=== PATIENT | male | born 1975 | race Caucasian/White ===

== ENCOUNTER 2021-08-21 23:51 | Emergency (ER) | payer MEDICAID, OTHER ==
[~2021-08-21] VITALS: Ht 182.8 cm; Wt 78.3 kg
[2021-08-22] MEDS ORDERED: KETOROLAC 30 MG/ML VIAL IVP STA (00:22)
[2021-08-22] MEDS ORDERED: LACTATED RINGERS 1,000 ML IV ONE (00:30)
--- NOTE | 2021-08-22 00:37 | ED GU-Male ---
General Chief Complaint: Back Problems Stated Complaint: RT SIDE KIDNEY PX Nursing Triage Note: PT ARRIVAL TO ER WITH COMPLAINT OF RIGHT FLANK PAIN X12 HOURS. PT STATES THAT ITS A RIPPING HIS KIDNEY OUT TYPE OF PAIN. PT STATES THAT WHILE SHOWERING EARLIER HE PEED WHAT LOOKED LIKE MUDDY WATER. PT DENIES PAINFUL URINATION OR DIFFICULTY URINATING BUT STATES THAT IT LOOKED NASTY. PT SAYS PAIN GOES FROM RIGHT KIDNEY AREA AROUND TO GROIN AREA. Source: patient History of Present Illness Date Seen by Provider: Aug 22, 2021 Time Seen by Provider: 00:20 Initial Comments PT ARRIVES VIA POV FROM HOME STATES Allergies and Home Medications Allergies Coded Allergies: No Known Allergies (Verified Allergy, Unknown, 03/25/05) Past Zzbhkeu-[id number]-Jkwcvv Hx Patient Social History Tobacco Use?: Yes Tobacco type used: Cigarettes Smoking Status: Current Everyday Smoker Use of E-Cig and/or Vaping dev: No Substance use?: Yes Substance type: Marijuana Substance frequency: Couple times a week Alcohol Use?: Yes Alcohol type: Beer, Hard Liquor Alcohol Frequency: Rarely Pt feels they are or have been: No Immunizations Up To Date Influenza Vaccine Up-to-Date: No; Not Current Physical Exam Vital Signs Vital Signs - First Documented 08/22/21 00:04 Temp 36.8 Pulse 96 Resp 20 B/P (MAP) 105/80 (88) Pulse Ox 97 O2 Delivery Room Air Capillary Refill : Less Than 3 Seconds Height, Weight, BMI Height: '" Weight: lbs. oz. kg; 23.00 BMI Method: Progress/Results/Core Measures Suspected Sepsis SIRS Temperature: Pulse: 96 Respiratory Rate: 20 Laboratory Tests 08/22/21 00:47: White Blood Count 12.9H Blood Pressure 105 /80 Mean: 88 Laboratory Tests 08/22/21 00:47: Creatinine 0.94, Platelet Count 206, Total Bilirubin 0.4 Results/Orders Lab Results Laboratory Tests Test 08/22/21 00:04 08/22/21 00:47 Range/Units Urine Color YELLOW Urine Clarity CLOUDY Urine pH 5.5 5-9 Urine Specific [place] >=1.030 1.016-1.022 Urine Protein 2+ H NEGATIVE Urine Glucose (UA) NEGATIVE NEGATIVE Urine Ketones NEGATIVE NEGATIVE Urine Nitrite NEGATIVE NEGATIVE Urine Bilirubin 1+ H NEGATIVE Urine Urobilinogen 1.0 < = 1.0 MG/DL Urine Leukocyte Esterase NEGATIVE NEGATIVE Urine RBC (Auto) 3+ H NEGATIVE Urine RBC 5-10 H /HPF Urine WBC NONE /HPF Urine Squamous Epithelial Cells RARE /HPF Urine Crystals PRESENT H /LPF Urine Calcium Oxalate Crystals FEW H /LPF Urine Bacteria MODERATE H /HPF Urine Casts NONE /LPF Urine Mucus SMALL H /LPF Urine Culture Indicated YES White Blood Count 12.9 H 4.3-11.0 10^3/uL Red Blood Count 4.83 4.30-5.52 10^6/uL Hemoglobin 14.8 13.3-17.7 g/dL Hematocrit 45 40-54 % Mean Corpuscular Volume 92 80-99 fL Mean Corpuscular Hemoglobin 31 25-34 pg Mean Corpuscular Hemoglobin Concent 33 32-36 g/dL Red Cell Distribution Width 12.8 10.0-14.5 % Platelet Count 206 130-400 10^3/uL Mean Platelet Volume 10.3 9.0-12.2 fL Immature Granulocyte % (Auto) 0 % Neutrophils (%) (Auto) 70 42-75 % Lymphocytes (%) (Auto) 22 12-44 % Monocytes (%) (Auto) 8 0-12 % Eosinophils (%) (Auto) 1 0-10 % Basophils (%) (Auto) 0 0-10 % Neutrophils # (Auto) 8.9 H 1.8-7.8 10^3/uL Lymphocytes # (Auto) 2.8 1.0-4.0 10^3/uL Monocytes # (Auto) 1.0 0.0-1.0 10^3/uL Eosinophils # (Auto) 0.1 0.0-0.3 10^3/uL Basophils # (Auto) 0.0 0.0-0.1 10^3/uL Immature Granulocyte # (Auto) 0.0 0.0-0.1 10^3/uL Sodium Level 141 135-145 MMOL/L Potassium Level 4.0 3.6-5.0 MMOL/L Chloride Level 106 98-107 MMOL/L Carbon Dioxide Level 22 21-32 MMOL/L Anion Gap 13 5-14 MMOL/L Blood Urea Nitrogen 17 7-18 MG/DL Creatinine 0.94 0.60-1.30 MG/DL Estimat Glomerular Filtration Rate 101 BUN/Creatinine Ratio 18 Glucose Level 99 70-105 MG/DL Calcium Level 9.5 8.5-10.1 MG/DL Corrected Calcium 9.3 8.5-10.1 MG/DL Total Bilirubin 0.4 0.1-1.0 MG/DL Aspartate Amino Transf (AST/SGOT) 18 5-34 U/L Alanine Aminotransferase (ALT/SGPT) 15 0-55 U/L Alkaline Phosphatase 70 40-136 U/L Total Protein 7.0 6.4-8.2 GM/DL Albumin 4.3 3.2-4.5 GM/DL My Orders Orders - FRANCINE GONG DO Ed Iv/Invasive Line Start (08/22/21 00:22) Ct Abd/Pelvis Wo(Kidney Stone) (08/22/21 00:22) Abdomen/Kub 1view (08/22/21:) Cbc With Automated Diff (08/22/21:22) Comprehensive Metabolic Panel (08/22/21:22) Ua Culture If Indicated (08/22/21:22) Ed Iv/Invasive Line Start (08/22/21:22) Ketorolac Injection (Toradol Injection) (08/22/21:22) Ed Iv/Invasive Line Start (08/22/21 00:22) Lactated Ringers (Lr 1000 Ml Iv Solution (08/22/21 00:30) Urine Culture (08/22/21 00:04) Alcohol (08/22/21 01:30) Drug Screen Stat (Urine) (08/22/21 01:30) Medications Given in ED Current Medications Medications Dose Ordered Sig/Veronica Route Start Time Stop Time Status Last Admin Dose Admin Lactated Ringer's 1,000 ml @ 0 mls/hr Q0M ONCE IV 08/22/21 00:30 08/22/21 00:31 DC 08/22/21 00:49 999 MLS/HR Vital Signs/I&O 08/22/21 00:04 Temp 36.8 Pulse 96 Resp 20 B/P (MAP) 105/80 (88) Pulse Ox 97 O2 Delivery Room Air Capillary Refill : Less Than 3 Seconds Blood Pressure Mean: 88 Departure Impression Primary Impression: Right flank pain Additional Impressions: Urinary tract infection with hematuria RIGHT INTRARENAL STONE Disposition: HOME, SELF-CARE Condition: Improved Departure-Patient Inst. Decision time for Depature: 01:30 Referrals: NO,LOCAL PHYSICIAN (PCP) Primary Care Physician REBECCA RODRÍGUEZ MD Patient Instructions: Flank Pain, Blood in Urine (Hematuria), Adult ED, Urinary Tract Infection, Adult ED Add. Discharge Instructions: INCREASE YOUR FLUID INTAKE FOLLOW UP WITH DR. RODRÍGUEZ, UROLOGIST, THIS WEEK FOR FURTHER CARE, RETURN TO ER IF WORSE All discharge instructions reviewed with patient and/or family. Voiced unde rstanding. Scripts Tramadol HCl (Ultram) 50 Mg Tablet 50 MG PO Q4H for Pain, #10 TAB Prov: FRANCINE GONG DO 08/22/21 Ketorolac Tromethamine (Ketorolac Tromethamine) 10 Mg Tablet 10 MG PO Q6H for Pain, #15 TAB Prov: FRANCINE GONG DO 08/22/21 Ondansetron (Ondansetron Odt) 4 Mg Tab.rapdis 4 MG PO Q4H for Nausea/Vomiting, #10 TAB Prov: FRANCINE GONG DO 08/22/21 Tamsulosin HCl (Flomax) 0.4 Mg Cap 0.4 MG PO DAILY, #10 CAP Prov: FRANCINE GONG DO 08/22/21 Ciprofloxacin HCl (Ciprofloxacin HCl) 500 Mg Tablet 500 MG PO BID, #14 TAB Prov: FRANCINE GONG DO 08/22/21 FRANCINE GONG DO Aug 22, 2021 00:37
[2021-08-22 00:56] LABS: BASOPHILS % (AUTO) 0 % (0-10); EOSINOPHILS # (AUTO) 0.1 10^3/uL (0.0-0.3); EOSINOPHILS % (AUTO) 1 % (0-10); HEMATOCRIT 45 % (40-54); HEMOGLOBIN 14.8 g/dL (13.3-17.7); LYMPHOCYTES # (AUTO) 2.8 10^3/uL (1.0-4.0); LYMPHOCYTES % (AUTO) 22 % (12-44); MEAN CORPUSCULAR HEMOGLOBIN 31 pg (25-34); MEAN CORPUSCULAR HGB CONC 33 g/dL (32-36); MEAN CORPUSCULAR VOLUME 92 fL (80-99); MEAN PLATELET VOLUME 10.3 fL (9.0-12.2); MONOCYTES % (AUTO) 8 % (0-12); NEUTROPHILS # (AUTO) 8.9 10^3/uL (1.8-7.8); NEUTROPHILS % (AUTO) 70 % (42-75); PLATELET COUNT 206 10^3/uL (130-400); WHITE BLOOD COUNT 12.9 10^3/uL (4.3-11.0)
[2021-08-22 01:04] LABS: BACTERIA,URINE MODERATE /HPF; BILIRUBIN,URINE 1+ (NEGATIVE); CLARITY,URINE CLOUDY; COLOR,URINE YELLOW; GLUCOSE, URINE (UA) NEGATIVE (NEGATIVE); KETONES,URINE NEGATIVE (NEGATIVE); LEUKOCYTE ESTERASE ,URINE NEGATIVE (NEGATIVE); NITRITE,URINE NEGATIVE (NEGATIVE); PH,URINE 5.5 (5-9); PROTEIN,URINE 2+ (NEGATIVE); SQUAMOUS EPITHELIAL CELL,UR RARE /HPF
[2021-08-22 01:06] LABS: CALCIUM OXALATE CRYSTALS,UR FEW /LPF
[2021-08-22 01:08] LABS: ALBUMIN 4.3 GM/DL (3.2-4.5)
[2021-08-22 01:10] LABS: CALCIUM 9.5 MG/DL (8.5-10.1)
[2021-08-22 01:13] LABS: BILIRUBIN,TOTAL 0.4 MG/DL (0.1-1.0)
[2021-08-22 01:15] LABS: CREATININE SERUM 0.94 MG/DL (0.60-1.30)
[2021-08-22] MEDS ORDERED: cefTRIAXone 1 GM PRE-MIX 50 ML IV STA (01:31)
[2021-08-22] MEDS ORDERED: CIPR500T5 PO (01:38)
[2021-08-22] MEDS ORDERED: TRAM-42 PO (01:38)
[2021-08-22] MEDS ORDERED: KETO10TA PO (01:38)
[2021-08-22] MEDS ORDERED: TMSL.4C PO (01:38)
[2021-08-22] MEDS ORDERED: ONDA4TAB11 PO (01:38)
[2021-08-22 01:41] VITALS: BP 109/81
[2021-08-22] MEDS ORDERED: TAMSULOSIN 0.4 MG (FLOMAX) CAP PO SCH (01:45)
[2021-08-22 01:57] LABS: AMPHETAMINE SCREEN, URINE NEGATIVE (NEGATIVE); BARBITURATE SCREEN URINE NEGATIVE (NEGATIVE); BENZODIAZEPINES SCREEN URINE NEGATIVE (NEGATIVE); CANNABINOID SCREEN, URINE POSITIVE (NEGATIVE); COCAINE SCREEN URINE NEGATIVE (NEGATIVE); METHADONE STAT NEGATIVE (NEGATIVE); OPIATE SCREEN URINE NEGATIVE (NEGATIVE); OXYCODONE STAT NEGATIVE (NEGATIVE); PROPOXYPHENE STAT NEGATIVE (NEGATIVE); TRICYCLIC ANTIDEPRESSANTS SCRE NEGATIVE (NEGATIVE)
--- NOTE | 2021-08-22 07:01 | Diagnostic Imaging Report ---
CT ABD/PELVIS WO(KIDNEY STONE) TECHNIQUE: Unenhanced CT imaging of the abdomen and pelvis was performed. 2-D reformats are created and submitted for interpretation. Automatic exposure controls were utilized to optimize patient dose. INDICATION: Flank pain, kidney stone COMPARISON: None available. FINDINGS: Evaluation of the abdominal viscera is suboptimal without contrast. Lower chest: Right basilar groundglass nodule. Peritoneum: No free intraperitoneal air or fluid. Liver and biliary system: Unenhanced liver is normal. The gallbladder is normal. No biliary duct dilation. Spleen and Pancreas: Spleen is normal. Unenhanced pancreas is grossly normal. Adrenals: Normal. tract: Nonobstructing 5 mm right renal stone. There is a 12 mm cortical calcification in the upper pole left kidney likely in an area of scar. No ureteral stones or obstructive uropathy. Urinary bladder is decompressed. GI tract: Stomach is decompressed. No bowel obstruction. No pericolonic inflammatory changes. Normal appendix. Vasculature and Lymph nodes: Normal caliber aorta has mild calcification. No abdominal or pelvic lymphadenopathy. 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 IMPRESSION: 1. No obstructive uropathy. 2. A 5 mm nonobstructing renal stone is present. Cortical based calcification upper pole left kidney. 3. Right lower lobe ground glass nodule is most likely infectious/inflammatory in nature. 4. Avascular necrosis of bilateral femoral heads with fragmentation and subtle subchondral collapse. I am in general agreement with the preliminary report, with a minor discrepancy between the avascular necrosis of the femoral heads was not mentioned. Report was faxed and called to Dr. Izquierdo [facility] ER by randall at 6:57am. TRISHA Alcala, was also notified. Dictated by: Dictated on workstation # [id number]
--- NOTE | 2021-08-22 07:49 | Diagnostic Imaging Report ---
ABDOMEN/KUB 1VIEW INDICATION: Flank pain COMPARISON: CT abdomen pelvis performed earlier same day TECHNIQUE: AP view the abdomen FINDINGS: Stable 5 mm right renal stone. Stable dystrophic calcification upper pole left kidney. Nonobstructive bowel gas pattern. Bilateral femoral head avascular necrosis with fragmentation and subchondral collapse. IMPRESSION: 1. No change in 5 mm right renal stone. 2. Dystrophic calcification cortex upper pole left kidney is better evaluated on recent CT. 3. Bilateral femoral head avascular necrosis. Dictated by: Dictated on workstation # [id number]
== END 2021-08-22 01:57 | disposition home or self-care (01) ==
LOC: EDUNIT# 23:51 → ER 23:58
DX: N20.0 Calculus of kidney (principal); N39.0 Urinary tract infection, site not specified; F17.210 Nicotine dependence, cigarettes, uncomplicated; Z28.310 Unvaccinated for COVID-19
CPT/HCPCS: 36415; 74018; 74176; 80053; 80306; 80320; 81000; 85025; 87088